=== PATIENT | female | born 1975 | race Asian ===

== ENCOUNTER 2017-06-10 00:47 | Inpatient (IN) | payer SELFPAY ==
[~2017-06-10] VITALS: Ht 166 cm; Wt 80.3 kg
[2017-06-10] MEDS ORDERED: LACTATED RINGERS 1,000 ML IV SCH (02:46)
[2017-06-10 04:57] LABS: APPEARANCE,URINE HAZY (CLEAR); BILIRUBIN,URINE NEGATIVE (NEGATIVE); BLOOD, URINE NEGATIVE (NEGATIVE); COLOR,URINE YELLOW (YELLOW); LEUKOCYTE ESTERASE ,URINE NEGATIVE (NEGATIVE); NITRITE, URINE NEGATIVE (NEGATIVE); PH,URINE 6.5 (5.0-9.0); UGLUCOSE NEGATIVE (NEGATIVE)
[2017-06-10 05:08] LABS: BASOPHILS % (AUTO) 0.6 % (0.0-2.0); EOSINOPHILS # (AUTO) 0.1 K/uL (0-0.4); EOSINOPHILS % (AUTO) 1.1 % (0.0-4.0); LYMPHOCYTES # (AUTO) 1.7 K/uL (2.5-16.5); LYMPHOCYTES % (AUTO) 21.6 % (20.5-51.1); MEAN CORPUSCULAR HEMOGLOBIN 32 pg (27-31); MEAN CORPUSCULAR HGB CONC 33 g/dL (33-37); MEAN CORPUSCULAR VOLUME 97 fL (80-94); MONOCYTES # (AUTO) 0.7 K/uL (0.8-1.0); MONOCYTES % (AUTO) 8.6 % (1.7-9.3); NEUTROPHILS # (AUTO) 5.2 K/uL (1.8-7.7); NEUTROPHILS % (AUTO) 68.1 % (42.2-75.2); PLATELET COUNT (AUTO) 193 K/uL (140-450); RED BLOOD CELL COUNT(AUTO) 3.41 MIL/uL (4.20-5.40); RED CELL DISTRIBUTION WIDTH 13.3 % (11.6-13.7); WHITE BLOOD COUNT (AUTO) 7.7 K/uL (4.8-10.8)
[2017-06-10 05:12] LABS: ALBUMIN 2.6 g/dL (3.4-5.0); ANION GAP 11.4 (8-16); CARBON DIOXIDE 26.4 mmol/L (21-32); CREATININE 0.6 mg/dL (0.6-1.3); POTASSIUM 3.8 mmol/L (3.5-5.1); TOTAL BILIRUBIN 0.2 mg/dL (0.0-1.0)
[2017-06-10 05:14] LABS: RBC,URINE 0-5 (RARE) /HPF (0-5)
[2017-06-10 05:15] LABS: CALCIUM OXALATE CRYSTALS,UR 0-10 /HPF (None Seen)
[2017-06-10 06:36] VITALS: BP 98/58
[2017-06-10] MEDS ORDERED: CITRIC ACID/SODIUM CITRATE 30 ML UDC PO SCH (07:00)
[2017-06-10] MEDS ORDERED: IBUPROFEN 800 MG TAB PO PRN (07:40)
[2017-06-10] MEDS ORDERED: METHYLERGONOVINE 0.2 MG/ML AMP IM PRN (07:40)
[2017-06-10] MEDS ORDERED: MEASLES, MUMPS, AND RUBELLA 1 VIAL SQVAC PRN (07:40)
[2017-06-10] MEDS ORDERED: oxyCODONE/APAP 5/325 MG 1 TAB TAB PO PRN (07:40)
[2017-06-10] MEDS ORDERED: HYDROcodone/APAP 5/325 MG 1 TAB TAB PO PRN (07:40)
[2017-06-10] MEDS ORDERED: SIMETHICONE 80 MG TAB.CHEW PO PRN (07:40)
[2017-06-10] MEDS ORDERED: TRIMETHOBENZAMIDE 200 MG/2 ML SYR IM PRN (07:40)
[2017-06-10] MEDS ORDERED: TEMAZEPAM 15 MG CAP PO PRN (07:40)
--- NOTE | 2017-06-10 09:16 | NUR ---
PATIENT HAS BEEN SCREENED AND CATEGORIZED LOW NUTRITION RISK. PATIENT WILL BE SEEN WITHIN 7 DAYS OF ADMISSION. 06/16/[address]
[2017-06-10] MEDS ORDERED: BUPIVACAINE-MPF 0.75% 10 ML VIAL INJ ONE (11:15)
[2017-06-10] MEDS ORDERED: OXYTOCIN 10 UNITS/ML VIAL ONE ×2 (11:15→11:33)
[2017-06-10] MEDS ORDERED: MORPHINE SULFATE 4 MG/ML SYR ONE (11:15)
[2017-06-10] MEDS ORDERED: ePHEDrine 50 MG/ML VIAL ONE (11:15)
[2017-06-10] MEDS ORDERED: ceFAZolin 1,000 MG VIAL ONE (11:15)
[2017-06-10] MEDS ORDERED: ONDANSETRON 4 MG/2 ML VIAL ONE (11:15)
[2017-06-10] MEDS ORDERED: MIDAZOLAM 2 MG/2 ML VIAL ONE (11:31)
[2017-06-10] MEDS ORDERED: MORPHINE PRES FREE 10 MG/10 ML AMP IV ONE (11:32)
[2017-06-10] MEDS ORDERED: TRIAMCINOLONE 40 MG/ML 5ML VIAL ONE (11:33)
[2017-06-10 12:03] LABS: RAPID PLASMA REAGIN NON-REACTIVE (Non Reactiv)
[2017-06-10] MEDS ORDERED: KETOROLAC 30 MG/ML VIAL IVP PRN (12:05)
[2017-06-10] MEDS ORDERED: diphenhydrAMINE 50 MG/ML VIAL IVP PRN (12:05)
[2017-06-10] MEDS ORDERED: ONDANSETRON 4 MG/2 ML VIAL IVP PRN (12:05)
[2017-06-10] MEDS ORDERED: diphenhydrAMINE 50 MG/ML VIAL ONE (12:34)
[2017-06-10] MEDS: OXYTOCIN 20 UNITS/LR PREMIX 1,000 ML IV ONE ×2 (12:46→13:04)
[2017-06-10] MEDS ORDERED: SODIUM PHOSPHATE 118 ML ENEM RC PRN (13:05)
[2017-06-10] MEDS ORDERED: INFLUENZA VIRUS VACCINE QUAD 0.5 ML SYR IMVAC SCH (22:00)
[2017-06-10] MEDS: DOCUSATE SOD/SENNA 50/8.6 MG 1 TAB PO SCH (22:03)
[2017-06-10] MEDS ORDERED: OXYTOCIN 20 UNITS/LR PREMIX 1,000 ML IV ONE (22:21)
[2017-06-10] MEDS: OXYTOCIN 20 UNITS in LACTATED RINGERS 1,000 ML IV SCH (22:30)
[2017-06-11] MEDS ORDERED: IBUPROFEN 800 MG TAB PO PRN (06:00)
[2017-06-11 06:56] LABS: HEMATOCRIT 30.9 % (36-48); HEMOGLOBIN 10.4 g/dL (12.0-16.0); MEAN CORPUSCULAR HEMOGLOBIN 33 pg (27-31); MEAN CORPUSCULAR HGB CONC 34 g/dL (33-37); MEAN CORPUSCULAR VOLUME 98 fL (80-94); PLATELET COUNT (AUTO) 179 K/uL (140-450); RED BLOOD CELL COUNT(AUTO) 3.17 MIL/uL (4.20-5.40); WHITE BLOOD COUNT (AUTO) 12.6 K/uL (4.8-10.8)
[2017-06-11 07:30] LABS: LYMPHOCYTES % (MANUAL) 6 % (20-46); MONOCYTES % (MANUAL) 2 % (5-12)
--- NOTE | 2017-06-11 08:40 | NUR ---
TOLERATED INCENTIVE SPIROMETRY THERAPY WELL WITHOUT INCIDENT ENCOURAGED PATIENT WITH ACKNOWLEDGEMENT TO USE INCENTIVE SPIROMETRY EVERY 1-2 HOURS WHILE AWAKE
[2017-06-11] MEDS: OXYTOCIN 20 UNITS in LACTATED RINGERS 1,000 ML IV SCH (09:36)
--- NOTE | 2017-06-11 20:24 | NUR ---
INCENTIVE SPIROMETER NOT DONE, PATIENT SLEEPING.
[2017-06-11] MEDS ORDERED: INFLUENZA VIRUS VACCINE QUAD 0.5 ML SYR IMVAC SCH (22:30)
[2017-06-12] MEDS: DOCUSATE SOD/SENNA 50/8.6 MG 1 TAB PO SCH (21:00)
== END 2017-06-13 13:55 | disposition home or self-care (01) | DRG 766 ==
LOC: MFCC 00:47 → MLD 01:01 → MFCC 13:55
PROVIDERS: ADMIT Obstetrics & Gynecology; ATTEND Obstetrics & Gynecology
PROC: 10D00Z1 Extraction of Products of Conception, Low, Open Approach (ICD-10-PCS; principal; 2017-06-11)
PROC: 3E0234Z Introduction of Serum, Toxoid and Vaccine into Muscle, Percutaneous Approach (ICD-10-PCS; 2017-06-11)
PROC: 3E0234Z Introduction of Serum, Toxoid and Vaccine into Muscle, Percutaneous Approach (ICD-10-PCS; 2017-06-11)
DX: O34.211 Maternal care for low transverse scar from previous cesarean delivery (principal); O69.1XX0 Labor and delivery complicated by cord around neck, with compression, not applicable or unspecified; Z37.0 Single live birth; Z3A.38 38 weeks gestation of pregnancy; O89.4 Spinal and epidural anesthesia-induced headache during the puerperium; Z23 Encounter for immunization
CPT/HCPCS: 36415; 80053; 81001; 85025; 86592; 86886; 86900; 86901; 87086; 90658; 90715; J0690; J1200; J2250; J2270; J2405; J2590; J3301; J3490; J7060; J7120